=== PATIENT | male | born 2005 | race Caucasian/White ===

== ENCOUNTER 2024-04-23 14:04 | Emergency (ER) | payer OTHER, SELFPAY ==
--- NOTE | ~2024-04-23 | XR_ITS ---
EXAMINATION: XR chest 2V DATE: 04/23/2024 15:46 INDICATION: Chest pain TECHNIQUE: PA and lateral views of the chest were obtained. COMPARISON: None FINDINGS: The lungs are clear with no focal airspace opacities, pulmonary edema, pleural effusion or pneumothor ax. The cardiomediastinal silhouette is normal. S-shaped curvature of the spine with mild mid thoraci c dextrocurvature and mild thoracolumbar levocurvature. IMPRESSION: 1. No acute cardiopulmonary disease. Reviewed, dictated and finalized at location B. ER MACHINE OPERATOR
[2024-04-23 14:14] VITALS: BP 136/74; PULSE 102; RESP 20; TEMP 37.4; O2SAT 100
--- NOTE | 2024-04-23 15:22 | ED_ITS ---
HPI - General Adult General Chief complaint: Chest Pain Stated complaint: Chest Pain Time Seen by Provider: 04/23/24 15:15 Source: patient, RN notes reviewed and old records reviewed Mode of arrival: ambulatory Limitations: no limitations History of Present Illness HPI narrative: 19 year old male accompanied by father with complaints of 1 month duration of some chest pain which has increased lately. Patient reports that it extends across chest with bending and with certain positions, at times with talking and does go to his back at times, Patient reports no ill or sick symptoms, denies any shortness of breath or any nausea or vomiting. Patient reports some occasional acid reflex and he has taken Tums for this. Patient denies any injury or any recent heavy lifting.Poor historian. Father reports that patient has upcoming appointment with PCP at [facility] to get established. MD complaint: chest wall pain Onset (ago): month(s) (1) Location: chest (across mid chest) Radiation: back (at times) Severity: mild Severity scale (1-10): 2 Quality: sharp and other (associated with movements) Pain Consistency: intermittent Exacerbating factors: movement Treatments prior to arrival: other (took TuMS for acid reflux no OTC pain medications) Related Data Allergies Allergy/AdvReac Type Severity Reaction Status Date / Time melon Allergy Unknown Verified 04/23/24 15:06 peanut Allergy Unknown Verified 04/23/24 15:06 Review of Systems Review of Systems: CONSTITUTIONAL: Denies malaise, chills, sweats, or fever. EYES: Denies visual changes, redness, or discharge. ENT: Reports rhinorrhea, congestion, sinus pain, otalgia and sore throat. CARDIOVASCULAR: Report mid chest pain associated with movement, no palpitations, or edema. RESPIRATORY: Reports no cough.? Denies dyspnea or any increased pain to chest with deep breathing GASTROINTESTINAL: Denies abdominal pain, nausea, vomiting, diarrhea states some acid reflux SKIN: Denies rash or itching. MUSCULOSKELETAL: Denies myalgia. NEUROLOGIC: Denies headache. All systems reviewed & are unremarkable except as noted in HPI and below PMFSH Past Medical History Medical History (Updated 04/24/24 @ 14:35 by Felicia Nguyen NP) Anxiety Autism spectrum disorder Food allergy peanuts and melon Social History Social History (Updated 04/24/24 @ 14:24 by Felicia Nguyen NP) Smoking status: Never smoker Alcohol intake: never Substance use: never Living arrangements: with family Gender identity (if verbalized by the patient): Male Comments At time of signature, agree with nursing past medical, surgical, social and family history. There is no relevant family history pertinent to the presenting complaint Exam Narrative: GENERAL: Well-appearing, well-nourished, and in no acute distress. HEAD: Normocephalic EYES: PERRLA, conjunctivae clear ENT: Nares clear, turbinates edematous and erythematous, clear discharge. Mucous membranes moist. TM pearly carrero with dull light reflex bilaterally; no tragal tenderness. Oropharynx erythematous without lesions. Tonsils not enlarged and without exudate, no drooling, no hoarseness, no trismus, uvula midline. NECK: Supple. No lymphadenopathy CHEST: Clear to auscultation, breath sounds equal. No wheezing, rhonchi, rales, or stridor. No respiratory distress, speaks in full sentences.no cough noted SAO2 100% on room air, reports mid chest pain across chest with bending, certain movements denies any injury, some radiation to back HEART: Regular rate and rhythm. No murmur heard. SKIN: Warm, dry, no rash.chest pain mid aspect associated with bending movements NEURO: Alert and oriented x3. PSYCH: Normal mood and affect poor eye contact and poor historian Course Course Emergency Course: Patient is aware of diagnosis, understands and agrees to treatment plan.? Anticipatory guidance given.? Patient agrees to follow-up as directed and is aware of reasons to seek care at the emergency department. Portions of this record may have been created with voice recognition software Level of Care: Express Care Visit Vital Signs Vital signs: Vital Signs Temperature 37.4 C 04/23/24 14:14 Pulse Rate 102 H 04/23/24 14:14 Respiratory Rate 20 04/23/24 14:14 Blood Pressure 136/74 04/23/24 14:14 Pulse Oximetry 100 04/23/24 14:14 Oxygen Delivery Room Air 04/23/24 14:14 Temperature 37.4 C 04/23/24 14:14 Pulse Rate 102 H 04/23/24 14:14 Respiratory Rate 20 04/23/24 14:14 Blood Pressure 136/74 04/23/24 14:14 Pulse Oximetry 100 04/23/24 14:14 Oxygen Delivery Room Air 04/23/24 14:14 Reviewed Medical Decision Making Differential Diagnosis Differential Diagnosis: chest wall pain, chest pain with movements, some radiation of pain to back, atypical chest pain, chest wall pain Medical Records Medical records reviewed: Yes I reviewed the external patient's medical records. Vital Signs Vital Signs: Vital Signs Temperature 37.4 C 04/23/24 14:14 Pulse Rate 102 H 04/23/24 14:14 Respiratory Rate 20 04/23/24 14:14 Blood Pressure 136/74 04/23/24 14:14 Pulse Oximetry 100 04/23/24 14:14 Oxygen Delivery Room Air 04/23/24 14:14 Temperature 37.4 C 04/23/24 14:14 Pulse Rate 102 H 04/23/24 14:14 Respiratory Rate 20 04/23/24 14:14 Blood Pressure 136/74 04/23/24 14:14 Pulse Oximetry 100 04/23/24 14:14 Oxygen Delivery Room Air 04/23/24 14:14 reviewed Imaging Data Attestation: I personally reviewed and interpreted this imaging study as follows: My impression: no acute cardiopulmonary disease, S sharped curvature of spine, mild thoracic dextrocurvature and mild thoracolumbar levrocurvature Radiologist's impression: [place] [id number] XRay Report Signed Patient: Dewayne Cowan : 2005 MR#: [id number] Age: 19 Acct:[id number] Loc: [facility] ADM Date: 04/23/24Attending Dr: Ordering Physician: Felicia Nguyen APRN Date of Service: 04/23/24 Procedure(s): XR chest 2V Accession Number(s): [id number] cc: FLOOR CARE TECHNICIAN PHYSICIAN; Felicia Nguyen APRN~ EXAMINATION: XR chest 2V DATE: 04/23/2024 15:46 INDICATION: Chest pain TECHNIQUE: PA and lateral views of the chest were obtained. COMPARISON: None FINDINGS: The lungs are clear with no focal airspace opacities, pulmonary edema, pleural effusion or pneumothorax. The cardiomediastinal silhouette is normal. S-shaped curvature of the spine with mild mid thoracic dextrocurvature and mild thoracolumbar levocurvature. IMPRESSION: 1. No acute cardiopulmonary disease. Reviewed, dictated and finalized at location B. ATOLOGICAL SURGEON Dictated By: Phil Figueroa MD 04/23/24 1549 Signed By: <Electronically signed by Phil Figueroa MD in [facility]> Critical Care Time Critical Care Time Critical Care Time: No Discharge Plan Discharge Clinical Impression: Chest wall pain Patient Disposition: Home, Self-Care Condition: Stable Instructions: Antibiotic Form, Chest Wall Pain (ED) Additional Instructions: Ice and heat to the area for 20-30 minutes Gentle stretching exercises Gentle massage Caution with lifting, bending, stooping, twisting Avoid pushing, pulling Prednisone 20 mg twice daily for 5 days with food Anti-inflammatory medicine as directed--take with food my ibuprofen 400 mg 3 times daily with food for 3 days Follow-up with your PCP if not improving in 5-7 days If your symptoms persist, change or worsen significantly before you can contact your personal physician then please, without delay, go to the emergency dep artment for further evaluation. Follow-up with PCP in 7-10 days or sooner if needed Follow up with PCP soon in regards to your blood pressure which is elevated above threshold for referral. Blood pressure above 120/80 may indicate pre- hypertension. 136/74 Prescriptions: New prednisone 20 mg tablet 20 mg PO BID Qty: 10 0RF Rx Instructions: take with food Follow-up/Referrals: PHYSICIAN,FLOOR CARE TECHNICIAN [Primary Care Provider] - Time of Disposition: 16:20 Quality Mor Coma Scale Eyes: Open Verbal: Oriented and Alert Motor: Follows Commands Cade Coma Total Score: 15
== END 2024-04-23 16:25 | disposition home or self-care (01) ==
PROVIDERS: Emergency Provider Registered Nurse
DX: R07.89 Other chest pain (principal); F84.0 Autistic disorder
CPT/HCPCS: 71046; 99203; G0463